=== PATIENT | female | born 1985 | race Two or more races ===

== ENCOUNTER 2017-07-02 18:24 | Emergency (ER) | payer SELFPAY ==
[~2017-07-02] VITALS: Ht 162.6 cm; Wt 49.9 kg
[2017-07-02 18:40] VITALS: BP 135/84
[2017-07-02] MEDS ORDERED: LIDOCAINE /MPF 1% VIAL 5 ML VIAL ONE (19:29)
[2017-07-02] MEDS ORDERED: HYDROCODONE/APAP 10/325MG 1 EA TABLET PO ONE (19:30)
[2017-07-02] MEDS ORDERED: LIDOCAINE HCL/PF 1% 30 ML VIAL TP ONE (19:30)
[2017-07-02] MEDS ORDERED: CEPHALEXIN MONOHYDRATE 500 MG CAPSULE PO ONE ×2 (19:30→19:33)
[2017-07-02] MEDS ORDERED: TDAP [DIPH/PERTUSSIS/TET] 0.5 ML VIAL IM ONE ×2 (19:30→19:33)
[2017-07-02] MEDS ORDERED: LIDOCAINE HCL/PF 1% 30 ML SDV ONE (19:32)
[2017-07-02] MEDS ORDERED: HYDROCODONE/APAP 10/325MG 1 EA TABLET ONE (19:33)
--- NOTE | 2017-07-02 19:39 | NUR ---
AT FOR WOUND PROCEDURE.
--- NOTE | 2017-07-02 19:39 | NUR ---
PT MEDICATED ORDERED.
== END 2017-07-02 21:26 | disposition home or self-care (01) ==
LOC: ER 18:26
DX: S61.214A Laceration without foreign body of right ring finger without damage to nail, initial encounter (principal); S61.411A Laceration without foreign body of right hand, initial encounter; F17.200 Nicotine dependence, unspecified, uncomplicated; W25.XXXA Contact with sharp glass, initial encounter; Y93.89 Activity, other specified; Y92.89 Other specified places as the place of occurrence of the external cause; Y99.9 Unspecified external cause status
CPT/HCPCS: 73130-TC; 90715; A4606; A6402; J3490; Z7610

== ENCOUNTER 2017-07-09 18:46 | Emergency (ER) | payer SELFPAY ==
[~2017-07-09] VITALS: Ht 162.6 cm; Wt 54.4 kg
[2017-07-09 18:46] VITALS: BP 137/77
== END 2017-07-09 19:52 | disposition home or self-care (01) ==
LOC: ER 18:48
DX: S61.411D Laceration without foreign body of right hand, subsequent encounter (principal); F17.200 Nicotine dependence, unspecified, uncomplicated
CPT/HCPCS: A4606; A6402; Z7502; Z7610

== ENCOUNTER 2018-02-23 11:35 | Emergency (ER) | payer MEDICAID, OTHER ==
[~2018-02-23] VITALS: Ht 162.6 cm; Wt 59.0 kg
[2018-02-23 11:56] VITALS: BP 100/59
[2018-02-23] MEDS ORDERED: ACETAMINOPHEN ES 500 MG TABLET PO ONE (12:30)
[2018-02-23] MEDS ORDERED: ACETAMINOPHEN ES 500 MG TABLET ONE (12:38)
--- NOTE | 2018-02-23 13:00 | NUR ---
STREP SWAB DONE
--- NOTE | 2018-02-23 13:15 | NUR ---
SWAB TAKEN TO LAB.
== END 2018-02-23 14:01 | disposition home or self-care (01) ==
LOC: ER 11:40
DX: J06.9 Acute upper respiratory infection, unspecified (principal); F17.200 Nicotine dependence, unspecified, uncomplicated
CPT/HCPCS: 87070; 87880; 99284; A4606; Z7610; 86403-TC

== ENCOUNTER 2018-12-11 08:48 | Emergency (ER) | payer MEDICAID ==
[~2018-12-11] VITALS: Ht 162.6 cm; Wt 55.8 kg
--- NOTE | 2018-12-11 08:50 | NUR ---
BIB SELF W C/O R UPPER RIB CAGE PAIN x 2 WEEKS, TO ER BED 1, HOOKED TO MONITOR, AWAITING MD GONSALVES
--- NOTE | 2018-12-11 09:02 | NUR ---
DR METZGER AT BEDSIDE
--- NOTE | 2018-12-11 10:11 | NUR ---
Patient discharged to home in stable condition. Written and verbal after care instructions given. Patient verbalizes understanding of instruction.
[2018-12-11 10:12] VITALS: BP 108/74
== END 2018-12-11 10:13 | disposition home or self-care (01) ==
LOC: ER 08:49
DX: S20.211A Contusion of right front wall of thorax, initial encounter (principal); F17.200 Nicotine dependence, unspecified, uncomplicated; X58.XXXA Exposure to other specified factors, initial encounter; Y93.89 Activity, other specified; Y92.89 Other specified places as the place of occurrence of the external cause; Y99.8 Other external cause status
CPT/HCPCS: 71100; 99283; A4606